=== PATIENT | female | born 1960 | race Caucasian/White ===

== ENCOUNTER 2016-05-26 07:33 | Outpatient (CLI) | payer BC | END 2016-05-26 20:23 | disposition home or self-care (01) | LOC: SMA 07:33 | PROVIDERS: ATTEND General Practice | DX: Z12.31 Encounter for screening mammogram for malignant neoplasm of breast (principal) | CPT/HCPCS: 77067; G0202 ==

== ENCOUNTER 2017-07-06 12:15 | Outpatient (CLI) | payer BC | END 2017-07-06 14:00 | disposition home or self-care (01) | LOC: SMA 12:15 | PROVIDERS: ATTEND General Practice | DX: Z12.31 Encounter for screening mammogram for malignant neoplasm of breast (principal) | CPT/HCPCS: 77067 ==

== ENCOUNTER 2018-08-14 08:42 | Outpatient (CLI) | payer BC | END 2018-08-14 21:14 | disposition home or self-care (01) | LOC: SMA 08:42 | PROVIDERS: ATTEND General Practice | DX: Z12.31 Encounter for screening mammogram for malignant neoplasm of breast (principal) | CPT/HCPCS: 77067 ==

== ENCOUNTER 2020-02-05 12:45 | Outpatient (CLI) | payer BC | END 2020-02-05 20:06 | disposition home or self-care (01) | LOC: SMA 12:45 | PROVIDERS: ATTEND General Practice | DX: Z12.31 Encounter for screening mammogram for malignant neoplasm of breast (principal); R10.9 Unspecified abdominal pain; R19.7 Diarrhea, unspecified | CPT/HCPCS: 76700-TC; 76830-TC; 76857; 77067 ==